=== PATIENT | male | born 1955 | race Caucasian/White ===

== ENCOUNTER 2020-09-06 15:05 | Emergency (ER) | payer OTHER ==
[~2020-09-06] VITALS: Ht 175.3 cm; Wt 83.9 kg
--- NOTE | 2020-09-06 15:20 | NUR ---
PT REFUSING TO PUT PHONE GAME AWAY TO ANSWER QUESTIONS FOR TRIAGE.
[2020-09-06 15:21] VITALS: BP 174/104
--- NOTE | 2020-09-06 15:30 | NUR ---
PT PRESENTS WITH ERYTHEMA ON SUBCONJUCTIVA, EDEMA AND ERYTHEMA OR ORBITAL AREA WITH YELLOWISH DISCHARGE. PT CANNOT COMPLETELY OPEN HIS RIGHT EYE. REPORTS SLIGHT BLURRY VISION. DENIES TRAUMA TO HIS RIGHT EYE. PT STATES THE EDEMA STARTED WITH A SMALL LUMP.
[2020-09-06 16:10] VITALS: BP 165/101
--- NOTE | 2020-09-06 16:10 | NUR ---
Patient discharged with v/s stable. Written and verbal after care instructions given and explained. Patient alert, oriented and verbalized understanding of instructions. Ambulatory with steady gait. All questions addressed prior to discharge. ID band removed. Patient advised to follow up with PMD. Rx of Naprosyn and Bactrim given. Patient educated on indication of medication including possible reaction and side effects. Opportunity to ask questions provided and answered.
== END 2020-09-06 16:10 | disposition home or self-care (01) ==
LOC: MED 15:05
DX: H02.843 Edema of right eye, unspecified eyelid (principal)
CPT/HCPCS: 99283

== ENCOUNTER 2020-09-08 08:00 | Emergency (ER) | payer OTHER ==
[~2020-09-08] VITALS: Ht 177.8 cm; Wt 87.1 kg
[2020-09-08 08:04] VITALS: BP 153/90
--- NOTE | 2020-09-08 08:13 | NUR ---
Patient ambulated to bed 4. RN evaluating patient at bedside.
--- NOTE | 2020-09-08 08:24 | NUR ---
Dr. Blackmon is evaluating the patient at bedside.
--- NOTE | 2020-09-08 08:39 | NUR ---
65 y/o male bib self for right eye pain x 1 week. Pt seen by MD, currently on Kefflex. Reports pain of 7/10, (+) itching. Pt presents with redness, swelling and yellow-green drainage from the right eye. VSS. Pt sitting on bed. ER MD made aware of patient status. PMH: lymphoma NKDA Meds: none
--- NOTE | 2020-09-08 08:39 | NUR ---
Note [email or web address] in EDM - 09/08/20 at 0839 by [facility] [place] 65 [place] bib self for right eye pain. rEPORTS PAIN OF 7 7/10. Noted redness and swelling and drainage from the right eye. Per patient, "My eyeball itches like crazy". PMH: Cancer; blood clots NKDA Meds: none
--- NOTE | 2020-09-08 09:05 | NUR ---
IV CONTRAST CONSENT DONE. WITH GAUGE 20 IV INSERTED ON L AC.
--- NOTE | 2020-09-08 09:16 | NUR ---
Patient taken to CT scan via gurney by [employer].
--- NOTE | 2020-09-08 10:11 | NUR ---
Dr. Blackmon is evaluating the patient at bedside.
[2020-09-08 11:05] VITALS: BP 153/90
--- NOTE | 2020-09-08 11:05 | NUR ---
Patient discharged with v/s stable. Written and verbal after care instructions given and explained. Patient verbalized understanding. Ambulatory with steady gait. All questions addressed prior to discharge. Advised to follow up with PMD.
== END 2020-09-08 11:05 | disposition home or self-care (01) ==
LOC: MED 08:00
DX: L03.213 Periorbital cellulitis (principal); F17.210 Nicotine dependence, cigarettes, uncomplicated; R03.0 Elevated blood-pressure reading, without diagnosis of hypertension
CPT/HCPCS: 70481; 99285; Q9967

== ENCOUNTER 2020-09-10 14:06 | Emergency (ER) | payer OTHER ==
[~2020-09-10] VITALS: Ht 177.8 cm; Wt 87.5 kg
[2020-09-10 14:12] VITALS: BP_SYST 171; BP_DIAS 90; BP_DIAS 98
--- NOTE | 2020-09-10 14:23 | NUR ---
WAIT AT LOBBY.
--- NOTE | 2020-09-10 15:10 | NUR ---
PATIENT AMBULATED TO ER BED 09
--- NOTE | 2020-09-10 15:11 | NUR ---
PT C/O RIGHT EYE REDNESS & SWELLING X 3 WEEKS. SEEN HERE FOR RIGHT EYE PERIORBITAL CELLULITIS ON 09/06/2020 AND 09/08/2020. PT REFUSED TO CHECK VA AT THIS TIME. PT DENIES ANY FEVER, CP, SOB, OR COUGH AT THIS TIME; PATIENT STATES PAIN OF 0/10 AT THIS TIME; VSS; PATIENT POSITIONED FOR COMFORT; HOB ELEVATED; BEDRAILS UP X1; BED DOWN. ER MD MADE AWARE OF PT STATUS.
[2020-09-10] MEDS ORDERED: FLUORESCEIN OPTH STRIP 1 MG OP ONE (15:40)
[2020-09-10] MEDS ORDERED: TETRACAINE HCL/PF 0.5% OPTH 4 ML BTL OP ONE (15:40)
--- NOTE | 2020-09-10 15:40 | NUR ---
ATTEMPTED TO TRY ANOTHER VISUAL ACUITY, PATIENT REFUSED. PA MADE AWARE.
[2020-09-10] MEDS ORDERED: AMOXIL/CLAVULANATE 875/125 MG 1 TAB PO ONE (15:45)
--- NOTE | 2020-09-10 15:49 | NUR ---
LESLIE MCHUGH IS IMPLEMENTING EYE EXAM AT BEDSIDE.
[2020-09-10 16:21] VITALS: BP 166/88
== END 2020-09-10 16:21 | disposition home or self-care (01) ==
LOC: MED 14:06
DX: L03.213 Periorbital cellulitis (principal); Z85.9 Personal history of malignant neoplasm, unspecified
CPT/HCPCS: 99283; 99284